=== PATIENT | female | born 1945 | race Caucasian/White ===

== ENCOUNTER → 2017-02-28 | Outpatient (CLI) | payer OTHER ==
[~2017-02-28] MED LIST: ACP20 PO; ASPCH81 PO; HYDC25 PO; MULT-506 PO; OXYC-57 PO
--- NOTE | 2017-02-28 13:53 | MAMMOGRAPHY REPORT ---
BILATERAL DIGITAL SCREENING MAMMOGRAM WITH CAD: 02/28/2017 CLINICAL HISTORY: Routine screening. TECHNIQUE: Current study was also evaluated with a Computer Aided Detection (CAD) system. Bilateral CC and MLO views were obtained. COMPARISON: Comparison is made to exams dated: 02/27/2016 mammogram, 02/22/2015 mammogram, 4 mammogram, 02/12/2013 mammogram, 01/24/2011 mammogram, and 02/12/2012 mammogram - [facility]. BREAST COMPOSITION: There are scattered areas of fibroglandular density in both breasts. FINDINGS: No suspicious masses, calcifications, or areas of architectural distortion are noted in ei ther breast. There has been no significant interval change compared to prior exams. Scattered bilater al benign-appearing calcifications are not significantly changed. IMPRESSION: ACR BI-RADS CATEGORY 2: BENIGN There is no mammographic evidence of malignancy. A 1 year screening mammogram is recommended. The pa tient will receive written notification of the results. Approximately 10% of breast cancers are not detected with mammography. A negative mammographic report should not delay biopsy if a clinically suggestive mass is present. Brittney Panchal M.D. ah/:02/28/2017 08:00:01 Continuity Reader: Kamini MARSHALL(Johanna)(M), [facility] letter sent: Normal 1/2 BI-RADS Code: ACR BI-RADS Category 2: Benign
== END | disposition home or self-care (01) ==
LOC: C.MAMM 07:31
PROVIDERS: ATTEND Family Medicine
DX: Z12.31 Encounter for screening mammogram for malignant neoplasm of breast (principal)

== ENCOUNTER 2019-02-23 06:12 | Inpatient (IN) ==
--- NOTE | 2019-01-26 16:30 | PAT Medication Instructions ---
Medication Instructions Date of Service January 26, 2019 Home Medications acetaminophen [Tylenol Arthritis Pain] 1,300 mg PO UD PRN 01/20/19 [History Confirmed 01/20/19] apple cider vinegar 1,200 mg PO BID 01/20/19 [History Confirmed 01/20/19] ascorbic acid (vitamin C) [Vitamin C] 1 g PO DAILY 01/20/19 [History Confirmed 01/20/19] aspirin [Aspir-81] 81 mg PO DAILY 01/20/19 [History Confirmed 01/20/19] calcium carbonate [Calcium 600] 600 mg PO BID 01/20/19 [History Confirmed 01/20/19] diphenhydramine HCl 25 mg PO QAM 01/20/19 [History Confirmed 01/20/19] lisinopril 10 mg PO QAM 01/20/19 [History Confirmed 01/20/19] omega 4-ibe-qhc-fish oil [[place]-3] 1 cap PO QAM 01/20/19 [History Confirmed 01/20/19] pantoprazole 40 mg PO QAM 01/20/19 [History Confirmed 01/20/19] simvastatin 20 mg PO PM 01/20/19 [History Confirmed 01/20/19] STOP taking 2 weeks before surgery (or as soon as possible if surgery is within 2 weeks) apple cider vinegar 1,200 mg PO BID 01/20/19 [History Confirmed 01/20/19] omega 0-lmd-grn-fish oil [[place]-3] 1 cap PO QAM 01/20/19 [History Confirmed 01/20/19] DO NOT take the morning of surgery ascorbic acid (vitamin C) [Vitamin C] 1 g PO DAILY 01/20/19 [History Confirmed 01/20/19] calcium carbonate [Calcium 600] 600 mg PO BID 01/20/19 [History Confirmed 01/20/19] diphenhydramine HCl 25 mg PO QAM 01/20/19 [History Confirmed 01/20/19] lisinopril 10 mg PO QAM 01/20/19 [History Confirmed 01/20/19] Take morning of surgery With a small sip of water, OTHERWISE NOTHING TO EAT OR DRINK AFTER MIDNIGHT: acetaminophen [Tylenol Arthritis Pain] 1,300 mg PO UD PRN (okay to take up to 4 hours prior to surgery if needed) aspirin [Aspir-81] 81 mg PO DAILY pantoprazole 40 mg PO QAM Take evening before surgery acetaminophen [Tylenol Arthritis Pain] 1,300 mg PO UD PRN (if needed) calcium carbonate [Calcium 600] 600 mg PO BID simvastatin 20 mg PO PM Other Notes If you have any questions please call us at [phone] or [phone] or [phone] or [phone]
--- NOTE | 2019-01-27 10:47 | Anesthesiology Consultation ---
Date of Service January 27, 2019 Assessment & Plan (1) Encounter for pre-operative examination: - Awaiting review preop testing (labs, EKG, CXR). - Awaiting surgeon-ordered PCP preop evaluation scheduled 02/02 (Dr. Park). Chart Review Chart Review: Pending: Refer to Additional Notes / Consult section (pending preop testing (labs, EKG, CXR)) and Patient seen in Pre Admission Testing Teaching & Discussion Pre-Anesthesia Teaching/Discussion Notes: Instructed NPO after midnight before surgery,except medications with 15 cc of water. Medication instructions provided according to the PAT guidelines. History Surgery Operation Date: 02/23/19 07:15 Proposed Procedures p Right Anterior Total Hip Arthroplasty - Caio Marmolejo, Height/Weight Height: 5 ft 1.5 in Weight: 73.7 kg Allergies Allergy/AdvReac Type Severity Reaction Status Date / Time DUST Allergy Unknown RUNNY NOSE Uncoded 01/20/19 08:55 Medications Home Medications Medication Instructions Recorded Confirmed Last Taken acetaminophen [Tylenol Arthritis 1,300 mg PO UD PRN 01/20/19 01/20/19 Unknown Pain] apple cider vinegar 1,200 mg PO BID 01/20/19 01/20/19 Unknown ascorbic acid (vitamin C) [Vitamin 1 g PO DAILY 01/20/19 01/20/19 Unknown C] aspirin [Aspir-81] 81 mg PO DAILY 01/20/19 01/20/19 Unknown calcium carbonate [Calcium 600] 600 mg PO BID 01/20/19 01/20/19 Unknown diphenhydramine HCl 25 mg PO QAM 01/20/19 01/20/19 Unknown lisinopril 10 mg PO QAM 01/20/19 01/20/19 Unknown omega 3-lkh-det-fish oil [[place]-3] 1 cap PO QAM 01/20/19 01/20/19 Unknown pantoprazole 40 mg PO QAM 01/20/19 01/20/19 Unknown simvastatin 20 mg PO PM 01/20/19 01/20/19 Unknown Past Medical History Medical History Acid reflux controlled Borderline high cholesterol High blood pressure Obesity Exercise / Class Metabolic Activity II 4-5 Yardwork/Stairs/Walk up hill (one flight of stairs (no chest pain/no sob) uses cane PRN) Past Family History Family History Sister Family history of diabetes mellitus Mother Family history of diabetes mellitus Aunt Family history of diabetes mellitus Past Surgical History Surgical History History of cholecystectomy History of colonoscopy History of foot surgery L BIG TOE Past Anesthesia History No Family Hx of Anesthesia Complications and Other *"slow to wake" x 1 episode with previous colonoscopy/no similar issues with other surgeries/anesthesia* History of PONV No Hx of PONV and No Hx of Motion Sickness Social History Smoking Status: Never smoker Do You Dip or Chew Tobacco: No Hx Alcohol Use: Yes Alcohol type: wine alcohol intake frequency: holidays/special occasions only Hx Substance Use: No substance use type: does not use Review of Systems Occasional cough (non-productive). Reflux controlled. Patient denies chest pain, shortness of breath, dyspnea on exertion, wheezing, palpitations. Physical Exam Vital Signs VITALS BP 109/73 P 71 TEMP 97.7 SP02 94%RA RESP 20 PHYSICAL Full neck and c-spine range of motion. Full TMJ range of motion. TMD 3.5 finger breaths Mallampati Score 3 (small oral opening) Dentition: intact Lungs: clear throughout to auscultation Cardiac: regular rate and rhythm, no murmurs noted Spine: normal Carotid arteries: negative bruit Extremities: no edema
--- NOTE | 2019-01-27 11:46 | XRay Report ---
XR chest Pre-admission PA/Lat HISTORY: 73 years-old Female pat preoperative exam. No acute chest complaints COMPARISON: Chest radiograph 07/18/2006, CT abdomen and pelvis 07/16/2006. TECHNIQUE: PA and lateral views of the chest FINDINGS: Cardiomediastinal and hilar silhouettes are within normal limits. Moderate sized hiatal hernia. Mild eventration of the right hemidiaphragm. No pneumothorax, pleural effusion, focal airspace consolidati on or overt pulmonary edema. Mild convex right curvature of the lower thoracic spine. Degenerative ch anges of the shoulders and spine. Cholecystectomy. IMPRESSION: 1. No acute process. 2. Moderate sized hiatal hernia. The above report was generated using voice recognition software. It may contain grammatical, syntax o r spelling errors. Electronically signed by: Juan Ramon Burden M.D. 01/27/2019 11:45 AM
[2019-01-27 13:08] LABS: Basophils # (auto) 0.01 K/uL (0-0.2); Basophils % (auto) 0.1 %; Eosinophils # (auto) 0.16 K/uL (0-0.5); Eosinophils % (auto) 2.3 %; Hematocrit (blood only) 39.4 % (37-47); Hemoglobin 13.2 g/dL (12.0-16.0); Immature Granulocytes # (auto) 0.02 K/uL (0.00-0.02); Immature Granulocytes % (auto) 0.3 %; Lymphocytes # (auto) 1.81 K/uL (1.2-3.4); Lymphocytes % (auto) 26.5 %; Mean Corpuscular Hemoglobin 29.2 pg (25-34); Mean Corpuscular Hgb Conc 33.5 g/dL (32-36); Mean Corpuscular Volume 87.2 fL (80-100); Monocytes # (auto) 0.64 K/uL (0.11-0.59); Monocytes % (auto) 9.4 %; Neutrophils # (auto) 4.19 K/uL (1.4-6.5); Neutrophils % (auto) 61.4 %; Platelet Count 267 K/uL (130-400); RDW Coefficient of Variation 13.1 % (11.5-14.5); Red Blood Count 4.52 M/uL (4.2-5.4); White Blood Count 6.83 K/uL (4.8-10.8)
[2019-01-27 13:12] LABS: Appearance Urine Cloudy (Clear); Bacteria Urine Automated 4+ (Negative); Bilirubin Urine Negative (Negative); Blood Urine Negative (Negative); Color Urine Yellow; Epithelial Cell Urine Auto >30 /lpf (0-5); Glucose Urine UA Negative (Negative); Ketones Urine Negative (Negative); Leukocyte Esterase Urine 2+ (Negative); Nitrite Urine Positive (Negative); Protein Urine Negative (Negative); Specific Gravity Urine 1.023 (1.000-1.030); Urobilinogen Urine Negative (Negative); WBC Urine Automated >30 /hpf (0-5)
[2019-01-27 13:19] LABS: Partial Thromboplastin Time 26.5 Seconds (21.0-31.0); Prothrombin Time 10.4 Seconds (9.0-12.0)
[2019-01-27 13:21] LABS: Estimated Average Glucose 120 mg/dl; Hemoglobin A1C 5.8 % (4.5-5.6)
[2019-01-27 14:56] LABS: BUN Creatinine Ratio 21.6 (10-20); Calcium 10.3 mg/dl (8.5-10.1); Creatinine Clr Calc Pharmacy 32.8 ml/min; Est GFR (African American) 42.8; Est GFR (Non-African American) 36.9; Potassium 4.6 mmol/L (3.5-5.1)
--- NOTE | 2019-02-22 13:08 | History & Physical Report ---
Date of Service February 22, 2019 Assessment & Plan (1) Degenerative joint disease (DJD) of hip: I have indicated the patient for right anterior total hip replacement. The risks, benefits and complications of surgery were explained to the patient which include but not limited to infection, acute blood loss, DVT/PE, injury to nerves, vessels, bone, soft tissue, arthrofibrosis, chronic pain, failure of the prosthesis, hip dislocation, leg length discrepancy, need for additional surgery, cardiac and pulmonary events and . The patient wished to proceed with surgery and informed consent was obtained at this time. We will plan for 81mg ASA BID post-operatively for DVT prophylaxis. Upon discharge the patient will be discharged home with home health services. Appropriate clearances by PCP were obtained. The patient had + UTI in PAT. Given 3 day course of DS bactrim. Currently asymptomatic for UTI. History of Present Illness Chief Complaint: Right hip pain/djd Primary Care Provider: Jake Park MD The patient is a 73 year old female who presents with complaints of severe right hip pain and DJD. The patient has failed outpatient conservative treatments to this point which included NSAIDs, IA corticosteroid injection, home exercise/walking program. The patient's pain and limited function have progressed to the point where they severely hinder their activities of daily living and they no longer tolerate exercise programs. They are requesting to proceed with total hip replacement surgery. Allergies Allergy/AdvReac Type Severity Reaction Status Date / Time DUST Allergy Unknown RUNNY NOSE Uncoded 02/23/19 06:41 Home Medications Home Medications Medication Instructions Recorded Confirmed Type acetaminophen [Tylenol Arthritis 1,300 mg PO UD PRN 01/20/19 02/23/19 History Pain] apple cider vinegar 1,200 mg PO BID 01/20/19 02/23/19 History ascorbic acid (vitamin C) [Vitamin 1 g PO DAILY 01/20/19 02/23/19 History C] aspirin [Aspir-81] 81 mg PO DAILY 01/20/19 02/23/19 History calcium carbonate [Calcium 600] 600 mg PO BID 01/20/19 02/23/19 History diphenhydramine HCl 25 mg PO QAM 01/20/19 02/23/19 History lisinopril 10 mg PO QAM 01/20/19 02/23/19 History omega 9-vgy-mwm-fish oil [[place]-3] 1 cap PO QAM 01/20/19 02/23/19 History pantoprazole 40 mg PO QAM 01/20/19 02/23/19 History simvastatin 20 mg PO PM 01/20/19 02/23/19 History Past Med/Surg History Medical History Acid reflux controlled Borderline high cholesterol High blood pressure Obesity Surgical History History of cholecystectomy History of colonoscopy History of foot surgery L BIG TOE Family History Sister Family history of diabetes mellitus Mother Family history of diabetes mellitus Aunt Family history of diabetes mellitus Social History Preferred Language: Mohawk Communication Ability: Effective Sheet Metal Welder Required: No Beliefs That Will Affect Care: None Current Living Situation: Spouse Other Information That Helps Us Care for You: No Feels Safe at Home: Yes Smoking Status: Never smoker Do You Dip or Chew Tobacco: No ; Hx Alcohol Use: Yes Alcohol type: wine Hx Substance Use: No Review of Systems Review of Systems: All systems reviewed & are unremarkable except as noted in HPI & below Constitutional: as per Subjective / HPI Physical Exam Physical Exam: RLE NVSI +EHL/FHL/TA/GS SILT grossly, +2 DP pulse, compartments soft NT, limited painful ROM of the hip, antalgic gait. Constitutional: WD/WN, vitals as above Eyes: PERRL, conjunctivae normal, anicteric sclerae ENMT: external ear and nose normal, oropharynx normal Neck: trachea midline, no thyromegaly Respiratory: normal respiratory effort, lungs clear to auscultation Cardiovascular: RRR, no murmur, no edema Gastrointestinal (Abdomen): normal bowel sounds, soft, nontender, no hepatosplenomegaly Musculoskeletal: no cyanosis or clubbing, extremities motor strength 5/5 Skin: no rashes, warm and dry Neurologic: patellar DTR's 2+ bilat, sensation intact Psychiatric: A+Ox3, euthymic affect Lymphatic: no cervical or axillary lymphadenopathy Results & Data Diagnostic Findings Multiple views of the hip demonstrates severe DJD with complete loss of the joint space. +osteophytes, +sclerosis, +subchondral cysts.
[~2019-02-23 06:12] MED LIST changes: +ACETAMINOPHEN 500 MG TAB PO SCH; -ACP20 PO; -ASPCH81 PO; +CEFAZOLIN 1000MG 1,000 MG/7.5 ML SYR IV SCH; +CeleBREX 200 MG CAP PO SCH; +FAMOTIDINE 20 MG TAB PO SCH; +GABAPENTIN 300 MG CAP PO SCH; -HYDC25 PO; +LR 500ML BOLUS, THEN 15ML/HR IV SCH; +METOCLOPRAMIDE HCL 10 MG TABLET PO SCH; -MULT-506 PO; -OXYC-57 PO; +ROPIVACAINE 0.5% HCL/PF 150 MG, BUPIVACAINE 0.5% MPF 30 ML, EPINEPHrine 30MG/30ML (OR U... INSTIL SCH; +TRANEXAMIC ACID 1,000 MG **IV Pre-op IV SCH; +dexAMETHasone 4 MG TAB PO SCH
[2019-02-23] MEDS ORDERED: TRANEXAMIC ACID 1,000 MG **IV Intra-op IV SCH (06:30)
[2019-02-23] MEDS ORDERED: BUPIVACAINE 0.5 % 5 MG/1 ML PF 10ML VIAL ONE (06:34)
[2019-02-23] MEDS ORDERED: PROPOFOL IV EMULSION 10 MG/ML 20 ML VIAL IV ONE (07:02)
[2019-02-23] MEDS ORDERED: DEXAMETHASONE SOD INJ 4 MG/ML VIAL ONE (07:02)
[2019-02-23] MEDS ORDERED: LIDOCAINE HCL 2% 2 ML VIAL/AMP(20MG/ML) INFIL ONE (07:02)
[2019-02-23] MEDS ORDERED: ONDANSETRON INJ 2 MG/ML 2 ML VIAL ONE (07:02)
[2019-02-23] MEDS ORDERED: MIDAZOLAM HCL 1 MG/ML 2ML VIAL ONE (07:03)
[2019-02-23] MEDS ORDERED: fentaNYL citrate 100 MCG/2 ML VIAL ONE (07:03)
--- NOTE | 2019-02-23 07:05 | History & Physical Bridge Note ---
Date of Service February 23, 2019 History & Physical Bridge Note I have examined the patient, reviewed the History & Physical and in the interval since the performance of the History & Physical I have noted the following changes of clinical significance: no changes noted
[2019-02-23] MEDS ORDERED: ORTHO JOINT ANESTHETIC ONE (07:46)
[2019-02-23] MEDS ORDERED: BACITRACIN INJ 50,000 UNIT VIAL ONE (07:46)
[2019-02-23] MEDS ORDERED: fentaNYL citrate 100 MCG/2 ML VIAL IV PRN (07:49)
[2019-02-23] MEDS ORDERED: HYDROmorphone INJ 2 MG/ML SYR/VIAL IV PRN (07:49)
[2019-02-23] MEDS ORDERED: ONDANSETRON INJ 2 MG/ML 2 ML VIAL IV PRN ×2 (07:49→12:40)
[2019-02-23] MEDS ORDERED: ATROPINE SULFATE 0.1 MG/ML 10ML SYR IV PRN (07:49)
[2019-02-23] MEDS ORDERED: ePHEDrine sulfate 50 MG/ML AMP IV PRN (07:49)
--- NOTE | 2019-02-23 10:54 | Post Operative Brief Note ---
Immediate Post Op Note v1 Date of Surgery February 23, 2019 Pre & Post Diagnosis Operation Date: 02/23/19 08:55 Pre-Op Diagnosis: Unilateral Primary Osteoarthritis, Right Hip Post-Op Diagnosis: Unilateral Primary Osteoarthritis, Right Hip I identified the patient and participated in the time-out.: Yes Procedure Operation Date: 02/23/19 08:55 Actual Procedures p Right Anterior Total Hip Arthroplasty(Right) - Caio Marmolejo DO Surgeon Caio Marmolejo DO Casino Manager Chino García Estimated Blood Loss 225 Findings Consistent with Post-Op Diagnosis Fluids 1200 cc LR Specimens femoral head Anesthesia Type Spinal Complications none Disposition Disposition: Recovery Room Overlapping Procedure I was present for: the critical portions of procedure. I was immediately available: during the entire case. Back up surgeon: was not required during procedure.
--- NOTE | 2019-02-23 11:07 | Fluoroscopy Report ---
FL hip RT 1V CLINICAL HISTORY: RT ANTERIOR HIP REPLACEMENThip replacement COMPARISON STUDY: None FLUOROSCOPY TIME: 44 seconds NUMBER OF FLUOROSCOPIC IMAGES: 2 FINDINGS: Image intensifier support was provided for a total right hip arthroplasty. Alignment appear s anatomic. IMPRESSION: Image intensifier support for a total right hip arthroplasty. The above report was generated using voice recognition software. It may contain grammatical, syntax or spelling errors. Electronically signed by: Christo Murphy M.D. 02/23/2019 11:06 AM
--- NOTE | 2019-02-23 11:11 | Operative Report ---
Post Operative Report Pre & Post Diagnosis Operation Date: 02/23/19 08:55 Pre-Op Diagnosis: Unilateral Primary Osteoarthritis, Right Hip Post-Op Diagnosis: Unilateral Primary Osteoarthritis, Right Hip I identified the patient and participated in the time-out.: Yes Procedure Operation Date: 02/23/19 08:55 Actual Procedures p Right Anterior Total Hip Arthroplasty(Right) - Caio Marmolejo DO Surgeon Caio Marmolejo DO Carport Erector Chino García Estimated Blood Loss 225 Findings Consistent with Post-Op Diagnosis Fluids 1200 cc LR Specimens Femoral head Anesthesia Type Spinal MAC Complications none Disposition Disposition: Recovery Room Indications The patient is a 73-year-old female who presents with severe progressive right hip DJD who has failed outpatient conservative treatments. I indicated the patient for a total hip replacement and the risks and benefits were explained in detail which included but not limited to infection, bleeding, blood clot, damage to surrounding bone, nerves, vessels, soft tissue, hip dislocation, failure of the prosthesis, leg length discrepancy, need for additional surgery and . The patient agreed to proceed with replacement of the hip and informed consent was obtained. Appropriate clearances were obtained. Description of Procedure COMPONENTS USED: [employer]ica & NephMonogramology hip system: Acetabulum size 50, femur size 3 standard offset, femoral head 32+0, liner 50x32, acetabular screw 25mm x1. DESCRIPTION OF PROCEDURE: Following satisfactory spinal anesthesia, the patient was placed supine on the OR table. The left leg was placed in the well leg shah and the right leg in the traction device. The right leg was prepared with ChloraPrep and draped sterilely. A surgical timeout was performed, patient identified and site vladimir verified. Appropriate antibiotics were given. A standard anterior approach in the interval between the sartorius and tensor muscles was performed. Dissection was carried down through subcutaneous tissues. Electrocautery was utilized for hemostasis. Circumflex femoral vessels were identified, tied and ligated. The anterior capsular fat pad was removed and the capsulotomy was performed revealing the arthritic femoral neck and head. A femoral neck cut was made with reciprocating saw and the bone fragments removed. The acetabular self-retraining retractor was placed. Acetabular reaming was completed under fluoroscopic guidance, a 50 shell was impacted into an anatomic position and secured with a dome screw. Local anes thetic was placed and following irrigation, the polyethylene liner was placed. The femur was placed into position of external rotation, extension and adduction. Femoral canal was prepared up to the size 3 standard offset. Trial reduction with a +0 neck length head showed good soft tissue tension, leg lengths restored, and good fit and fill of the proximal canal using fluoroscopic landmarks. The hip was dislocated. The trial component was removed. The final implant was placed. The hip was irrigated with sterile saline solution and reduced. A Betadine soak was performed. After 3 minutes, the hip was once more irrigated with copious sterile saline solution with bacitracin. Aida-incisional soft tissue was injected utilizing [place] [employer]ix which includes a combination of Ropivicaine 0.5% 150mg, Bupivicaine 0.5%/Epinephrine 1:200,000 30ml, Toradol 30mg, Dexamethasone 4mg, Ketamine 10mg, Clonidine 100mcg and NSS 30ml solution. The capsule was then closed with 1-0 Vicryl interrupted figure of eight sutures. The fascia was closed with a running suture of #1 Vicryl, the subcutaneous tissues with 2-0 Vicryl and the skin with wanda. A sterile dressing was applied which included Maria L incisional VAC. The patient tolerated the procedure well and was transported to PACU in stable condition. Due to the complex nature of the procedure, the entire surgery was performed with the operational assistance of Chino García PA-C. The conventions assistant, under direct supervision, was involved in the actual performance of all aspects of the surgical procedure including patient positioning, hemostasis, tissue retraction, instrument management and wound closure. I attest to the content of the Intraoperative Record and any orders documented therein. Any exceptions are noted below.
--- NOTE | 2019-02-23 11:29 | Anesthesiology Progress Note ---
Date of Service February 23, 2019 Anesthesia Post Procedure Vital Signs Vital Signs: Temp Pulse Resp BP Pulse Ox 02/23/19 06:45 36.4 C L 77 20 146/82 H 96 Transfer of Care Handoff Completed per policy Notes Mental Status: alert / awake / arousable and participated in evaluation Patient Amnestic to Procedure: Yes Nausea / Vomiting: adequately controlled Pain: adequately controlled Airway Patency, RR, SpO2: stable & adequate BP & HR: stable & adequate Hydration State: stable & adequate Anesthetic Complications: no major complications apparent and Pt Satisfied with anesthetic care
--- NOTE | 2019-02-23 12:08 | XRay Report ---
XR hip 1V RT w pelvis CLINICAL HISTORY: IN PACU - A/P PELVIS and LATERAL HIP COMPARISON: None. DISCUSSION: Anatomic alignment posttotal right hip arthroplasty. Good contact between prosthetic and underlying bone. No evidence for acetabular protrusion. Expected postoperative soft tissue change IMPRESSION: Anatomic alignment posttotal right hip arthroplasty. The above report was generated using voice recognition software. It may contain grammatical, syntax or spelling errors. Electronically signed by: Christo Murphy M.D. 02/23/2019 12:07 PM
[2019-02-23] MEDS ORDERED: MAGNESIUM HYDROXIDE SUSP 30 ML UDC PO PRN (12:40)
[2019-02-23] MEDS ORDERED: NALOXONE HCL 0.4 MG/1 ML VIAL/CARP IV PRN (12:40)
[2019-02-23] MEDS ORDERED: METOCLOPRAMIDE HCL INJ 5 MG/ML 2 ML VIAL IV PRN (12:40)
[2019-02-23] MEDS ORDERED: HYDROmorphone INJ 0.5 MG/0.5 ML SYR IV PRN (12:40)
[2019-02-23] MEDS ORDERED: OXYCODONE HCL IR 5 MG TAB (IMMEDIATE RELEASE) PO PRN (12:40)
[2019-02-23] MEDS ORDERED: BISACODYL 10 MG SUPP PR PRN (12:40)
[2019-02-23] MEDS: KETOROLAC TROMETHAMINE 15 MG/ML VIAL IV SCH ×3 (16:51→23:58)
[2019-02-23] MEDS: ACETAMINOPHEN 500 MG TAB PO SCH ×2 (16:52→22:05)
[2019-02-23] MEDS: SODIUM CHLORIDE 0.9% 1000ML 1,000 ML IV SCH (16:53)
--- NOTE | 2019-02-23 18:08 | Orthopedic Progress Note ---
Date of Service February 23, 2019 Assessment & Plan (1) Degenerative joint disease (DJD) of hip: s/p R anterior FINN -ancef x 24 -DVT ppx: SCDs, TEDs, 81mg ASA BID -WBAT RLE -PT/OT -PO XR demonstrates a well aligned well fixed prothesis without fracture dislocation -am labs -DC planning Subjective Post Operative Progress Note Patient seen sitting up in bed, comfortable, denies complaints, pain well controlled, no acute issues. Review of Systems Review of Systems: All systems reviewed & are unremarkable except as noted in HPI & below Constitutional: as per Subjective / HPI Physical Exam Physical Exam: RLE NVSI +EHL/FHL/TA/GS SILT grossly, +2 DP pulse, compartments soft NT, dressing cdi. Constitutional: WD/WN, vitals as above Results & Data Vital Signs (Past 12 Hours) Vital Signs Temp Pulse Pulse Pulse Pulse Resp BP 02/23/19 16:20 87 15 02/23/19 15:21 36.3 C L 82 16 02/23/19 14:39 36.6 C 78 16 02/23/19 13:41 79 17 02/23/19 12:53 76 16 02/23/19 12:30 36.5 C 73 18 02/23/19 12:05 71 15 126/78 02/23/19 12:00 72 16 121/71 02/23/19 11:55 75 18 126/73 02/23/19 11:51 36.3 C L 02/23/19 11:50 68 21 128/71 02/23/19 11:46 76 16 113/74 02/23/19 11:45 79 21 02/23/19 11:40 74 16 111/75 02/23/19 11:35 73 15 121/71 02/23/19 11:30 74 14 119/68 02/23/19 11:25 76 16 109/71 02/23/19 11:20 69 14 116/74 02/23/19 11:18 36.9 C 73 80 16 116/67 02/23/19 06:45 36.4 C L 77 20 BP Pulse Ox 02/23/19 16:20 129/76 97 02/23/19 15:21 121/72 98 02/23/19 14:39 120/77 100 02/23/19 13:41 123/74 97 11/26/19 12:53 117/76 97 02/23/19 12:30 113/70 99 02/23/19 12:05 99 02/23/19 12:00 99 02/23/19 11:55 96 02/23/19 11:51 02/23/19 11:50 99 02/23/19 11:46 96 02/23/19 11:45 96 02/23/19 11:40 99 02/23/19 11:35 99 02/23/19 11:30 99 02/23/19 11:25 96 02/23/19 11:20 99 02/23/19 11:18 116/67 98 02/23/19 06:45 146/82 H 96
[2019-02-23] MEDS: CEFAZOLIN 2000MG 2,000 MG/15 ML SYR IV SCH (18:38)
[2019-02-23] MEDS: DOCUSATE SODIUM 100 MG CAP PO SCH (20:42)
[2019-02-23] MEDS: CALCIUM CARBONATE 500 MG CHEWABLE TAB PO SCH (20:42)
[2019-02-23] MEDS ORDERED: SIMVASTATIN 20 MG TAB PO SCH (21:00)
[2019-02-23] MEDS ORDERED: SENNA 8.6 MG TAB PO SCH (21:00)
[2019-02-24] MEDS: SODIUM CHLORIDE 0.9% 1000ML 1,000 ML IV SCH (01:48)
[2019-02-24] MEDS: CEFAZOLIN 2000MG 2,000 MG/15 ML SYR IV SCH (01:48)
[2019-02-24] MEDS: ACETAMINOPHEN 500 MG TAB PO SCH ×2 (05:20→13:26)
[2019-02-24 05:52] LABS: Immature Granulocytes # (auto) 0.01 K/uL (0.00-0.02); Immature Granulocytes % (auto) 0.1 %; Lymphocytes # (auto) 0.81 K/uL (1.2-3.4); Lymphocytes % (auto) 7.7 %; Mean Corpuscular Hemoglobin 29.2 pg (25-34); Mean Corpuscular Hgb Conc 33.3 g/dL (32-36); Mean Corpuscular Volume 87.5 fL (80-100); Mean Platelet Volume 8.9 fL (7.4-10.4); Monocytes # (auto) 0.73 K/uL (0.11-0.59); Monocytes % (auto) 6.9 %; Neutrophils # (auto) 8.99 K/uL (1.4-6.5); Neutrophils % (auto) 85.3 %; Platelet Count 182 K/uL (130-400); RDW Coefficient of Variation 13.2 % (11.5-14.5); RDW Standard Deviation 42.5 fL (36.4-46.3); Red Blood Count 3.43 M/uL (4.2-5.4); White Blood Count 10.54 K/uL (4.8-10.8)
[2019-02-24] MEDS: KETOROLAC TROMETHAMINE 15 MG/ML VIAL IV SCH (06:15)
[2019-02-24 06:17] LABS: BUN Creatinine Ratio 25.8 (10-20); Calcium 8.3 mg/dl (8.5-10.1); Creatinine Clr Calc Pharmacy 28.3 ml/min; Est GFR (African American) 36.1; Est GFR (Non-African American) 31.2; Potassium 4.5 mmol/L (3.5-5.1)
--- NOTE | 2019-02-24 07:55 | Anesthesiology Progress Note ---
Date of Service February 24, 2019 Anesthesia Post Procedure Vital Signs Vital Signs: Temp Pulse Pulse Pulse Resp BP BP 02/24/19 07:20 36.3 C L 61 16 113/67 02/24/19 01:58 36.5 C 63 16 120/72 02/23/19 23:00 36.4 C L 70 16 113/64 02/23/19 16:20 87 15 129/76 02/23/19 15:21 36.3 C L 82 16 121/72 02/23/19 14:39 36.6 C 78 16 120/77 02/23/19 13:41 79 17 123/74 02/23/19 12:53 76 16 117/76 02/23/19 12:30 36.5 C 73 18 113/70 02/23/19 12:05 71 15 126/78 02/23/19 12:00 72 16 121/71 02/23/19 11:55 75 18 126/73 02/23/19 11:51 36.3 C L 02/23/19 11:50 68 21 128/71 02/23/19 11:46 76 16 113/74 02/23/19 11:45 79 21 02/23/19 11:40 74 16 111/75 02/23/19 11:35 73 15 121/71 02/23/19 11:30 74 14 119/68 02/23/19 11:25 76 16 109/71 02/23/19 11:20 69 14 116/74 02/23/19 11:18 36.9 C 73 80 16 116/67 116/67 Pulse Ox 02/24/19 07:20 96 02/24/19 01:58 97 02/23/19 23:00 99 02/23/19 16:20 97 02/23/19 15:21 98 02/23/19 14:39 100 02/23/19 13:41 97 02/23/19 12:53 97 02/23/19 12:30 99 02/23/19 12:05 99 02/23/19 12:00 99 02/23/19 11:55 96 02/23/19 11:51 02/23/19 11:50 99 02/23/19 11:46 96 02/23/19 11:45 96 02/23/19 11:40 99 02/23/19 11:35 99 02/23/19 11:30 99 02/23/19 11:25 96 02/23/19 11:20 99 02/23/19 11:18 98 Pain Intensity Right Hip: Pain Intensity: 0 Notes Mental Status: alert / awake / arousable and participated in evaluation Patient Amnestic to Procedure: Yes Nausea / Vomiting: adequately controlled Pain: adequately controlled Airway Patency, RR, SpO2: stable & adequate BP & HR: stable & adequate Hydration State: stable & adequate Neuraxial Anesthesia: was administered and sensory block resolved Anesthetic Complications: no major complications apparent and Pt Satisfied with anesthetic care
[2019-02-24] MEDS ORDERED: ASPIRIN 81 MG ECTAB PO SCH (09:00)
[2019-02-24] MEDS ORDERED: LISINOPRIL 10 MG TAB PO SCH (09:00)
[2019-02-24] MEDS ORDERED: PANTOprazole 40 MG TAB PO SCH (09:00)
[2019-02-24] MEDS ORDERED: MULTIVITAMIN TAB PO SCH (09:00)
[2019-02-24] MEDS: DOCUSATE SODIUM 100 MG CAP PO SCH (09:03)
[2019-02-24] MEDS: CALCIUM CARBONATE 500 MG CHEWABLE TAB PO SCH (09:04)
[2019-02-24 11:51] VITALS: BP 101/64; PULSE 63; TEMP 97.5; O2SAT 98
--- NOTE | 2019-02-24 13:15 | Orthopedic Progress Note ---
Date of Service February 24, 2019 Assessment & Plan (1) Degenerative joint disease (DJD) of hip: s/p R anterior FINN POD#1 -ancef x 24 -DVT ppx: SCDs, TEDs, 81mg ASA BID -WBAT RLE -PT/OT -PO XR demonstrates a well aligned well fixed prothesis without fracture dislocation -am labs: Hgb 10.0, Cr 1.61, baseline 1.4 -Will provide ambulatory order for repeat BMP upon discharge, will have patient follow up with PCP within 1 week of discharge -DC planning: Home with HH Subjective Post Operative Progress Note Patient seen sitting up in bed, comfortable, denies complaints, pain well controlled, no acute issues. Denies N/V/F/C/SOP/CP. Review of Systems Review of Systems: All systems reviewed & are unremarkable except as noted in HPI & below Constitutional: as per Subjective / HPI Physical Exam Physical Exam: RLE NVSI +EHL/FHL/TA/GS SILT grossly, +2 DP pulse, compartments soft NT, dressing cdi. Constitutional: WD/WN, vitals as above Results & Data Vital Signs (Past 12 Hours) Vital Signs Temp Pulse Pulse Resp BP Pulse Ox 02/24/19 11:33 36.4 C L 63 16 101/64 98 02/24/19 09:02 71 99/61 L 02/24/19 07:20 36.3 C L 61 16 113/67 96 02/24/19 01:58 36.5 C 63 16 120/72 97 Laboratory Results 02/24/19 02/24/19 02/24/19 Range/Units 05:40 05:40 05:40 WBC 10.54 (4.8-10.8) K/uL RBC 3.43 L (4.2-5.4) M/uL Hgb 10.0 L (12.0-16.0) g/dL Hct 30.0 L (37-47) % MCV 87.5 (80-100) fL MCH 29.2 (25-34) pg MCHC 33.3 (32-36) g/dL RDW Std Deviation 42.5 (36.4-46.3) fL RDW Coeff of Scar 13.2 (11.5-14.5) % Plt Count 182 (130-400) K/uL MPV 8.9 (7.4-10.4) fL Immature Gran % (Auto) 0.1 % Neut % (Auto) 85.3 % Lymph % (Auto) 7.7 % [place] % (Auto) 6.9 % Eos % (Auto) 0.0 % Baso % (Auto) 0.0 % Immature Gran # (Auto) 0.01 (0.00-0.02) K/uL Neut # (Auto) 8.99 H (1.4-6.5) K/uL Lymph # (Auto) 0.81 L (1.2-3.4) K/uL [place] # (Auto) 0.73 H (0.11-0.59) K/uL Eos # (Auto) 0.00 (0-0.5) K/uL Baso # (Auto) 0.00 (0-0.2) K/uL Sodium 138 (136-145) mmol/L Potassium 4.5 (3.5-5.1) mmol/L Chloride 109 H (98-107) mmol/L Carbon Dioxide 22 (21-32) mmol/L Anion Gap 7.0 (3-11) BUN 42 H (7-18) mg/dl Creatinine 1.61 H (0.6-1.2) mg/dl Est Cr Clr Drug Dosing 28.3 ml/min Est GFR ( Amer) 36.1 Est GFR (Non-Af Amer) 31.2 BUN/Creatinine Ratio 25.8 H (10-20) Glucose 134 H (70-99) mg/dl Calcium 8.3 L (8.5-10.1) mg/dl Hepatitis C Ab Screen Neg (Neg)
[2019-02-24] MEDS ORDERED: CeleBREX 200 MG CAP PO SCH (21:00)
--- NOTE | 2019-03-01 22:40 | Discharge Summary ---
Date of Service March 01, 2019 Admission HPI Per Admitting Provider The patient is a 73 year old female who presents with complaints of severe right hip pain and DJD. The patient has failed outpatient conservative treatments to this point which included NSAIDs, IA corticosteroid injection, home exercise/walking program. The patient's pain and limited function have progressed to the point where they severely hinder their activities of daily living and they no longer tolerate exercise programs. They are requesting to proceed with total hip replacement surgery. Principal Diagnosis Right anterior total hip replacement Discharge Exam RLE NVSI +EHL/FHL/TA/GS SILT grossly, +2 DP pulse, compartments soft NT, dressing cdi. Constitutional WD/WN, vitals as above Discharge Data Allergies Allergy/AdvReac Type Severity Reaction Status Date / Time mold Allergy Mild DUST -- Verified 02/23/19 09:58 runny nose Consultations 02/24/19 08:00 Consult Case Management - Discharge Planning Routine Procedures Performed Operation Date: 02/23/19 08:55 Actual Procedures p Right Anterior Total Hip Arthroplasty(Right) - Caio Marmolejo DO Ordered Studies 02/23/19 08:55 FL fluoroscopy <1hr Routine FL hip RT 1V Routine Hospital Course (1) Degenerative joint disease (DJD) of hip: The patient is a 73 -year-old female who presents with long standing history of severe right hip DJD and failed outpatient conservative treatments. The patient's symptoms have progressed to the point where it has been difficult to perform even normal activities of daily living. I indicated the patient for a right anterior total hip arthroplasty, the risks, benefits and complications of the procedure include but not limited to infection, bleeding, damage to bone, nerves, vessels, surrounding soft tissue, may develop blood clots, loss of function, leg length discrepancy, dislocation, failure of the components, loosening of the components, the need for additional surgery and . The patient wished to proceed with surgery at this time and informed consent was obtained. Hospital Course: On 02/23/19 the patient was taken to the operating room, adequate anesthesia administered and underwent a right anterior total hip arthroplasty. The patient tolerated the procedure well and was taken to the PACU in stable condition. Post-operatively the patient was started on a DVT ppx medication and given appropriate IV antibiotics. Consults were placed to physical therapy, occupational therapy and case management. On POD#1, the patient did well overnight and their pain was well controlled. Labs were drawn and the Hgb was 10.0, Cr 1.61, baseline 1.4 -We provided ambulatory order for repeat BMP upon discharge, will have patient follow up with PCP within 1 week of discharge. The patient progressed well with PT. Dressings were changed at this time and the incision was clean, dry and intact. The patients hospital stay was relatively uneventful and they were deemed stable by the orthopedic team and consultants to be discharged home with HH on 02/24/19. Discharge Instructions: Upon discharge the patient may weight bear as tolerates through their operative extremity. They were instructed to keep the incision clean and dry at all times. The patient may shower but should not submerge the incision, avoid bathing, pools and hot tubes. The patient was given a script for pain medication and should take as instructed. The patient was given a script for DVT ppx 81mg ASA BID and should take as directed. The patient was instructed to not drive or travel for long distances until cleared to do so. If the patient develops any symptoms of fevers, chills, nausea, vomiting, increased redness, swelling, pain or drainage from the surgical site, they should notify the office and/or proceed to the nearest emergency room. The patient should follow up in 10-14 days after surgery for their routine post-operative follow-up appointment and should call the office to confirm the date and time. s/p R anterior FINN POD#1 -ancef x 24 -DVT ppx: SCDs, TEDs, 81mg ASA BID -WBAT RLE -PT/OT -PO XR demonstrates a well aligned well fixed prothesis without fracture dis location -am labs: Hgb 10.0, Cr 1.61, baseline 1.4 -Will provide ambulatory order for repeat BMP upon discharge, will have patient follow up with PCP within 1 week of discharge -DC planning: Home with HH Total Time Total Time Spent Total Time Spent (In Minutes): 30 minutes Total Time Includes: Examination of the Patient, Discharge Planning, Medication Reconciliation and Communication With Other Providers Discharge Plan Discharge Items Patient Disposition: Home - Home Health Services Reason For Visit: Unilateral Primary Osteoarthritis, Right Hip Discharge Diagnosis: Right anterior total hip replacement Condition on Discharge: Good Activity: Per Instructions section Lifting: Wait until after follow-up appointment Bathing: Keep incision dry Bathing Comment: No bathing, pools or hot tubs. Sexual Activity: Wait until after follow-up appointment Exercise/Sports: Wait until after follow-up appointment Driving/Machine Use: No driving. Weightbearing: Right weightbearing Non-emergency contact: Primary Care Provider and Surgeon Call non-emergency contact if: you have any medication questions, your symptoms worsen, your pain is not controlled, your pain is worsening, your pain is unusual for you, your pain is concerning for you, you have a fever, your temperature is above 101, your wound has increased redness, your wound has inc reased drainage and your wound pain has increased Follow-up/Referrals: Jake Park MD [Primary Care Provider] - Diet: Regular Ambulatory Orders: Basic Metabolic Panel (Routine) Timeframe: 3 Days Location: Determined by Patient Ordered By: Caio Santos Attending Provider Instructions: ACTIVITY RECOMMENDATIONS: SELF CARE INSTRUCTIONS AFTER TOTAL HIP REPLACEMENT : Direct Anterior Approach Until the incision and soft tissues around your hip have healed, there is a possibility that the hip prosthesis could dislocate. A. Hip flexion ( Up & Down out of chair or steps ) may be difficult. This is normal. B. Numbness in front of the thigh is also normal for a few weeks. C. Use hand rails when walking on stairs. D. Wear low heeled shoes with non-slip soles. E. Be sure that your floors are free of things that could trip you - throw rugs, electrical cords, small objects. Avoid wet and waxed floors, especially with crutches and canes. F. Try to walk several times a day with rest periods between. G. Continue with all the exercises taught to you in the hospital. Again, make walking a part of your daily routine. SPECIAL CARE INSTRUCTIONS: VERY IMPORTANT TO READ AND REVIEW A. You may still be at risk for phlebitis and blood clots. 1. Wear surgical stockings (MILA hose) for 2 weeks after surgery to improve circulation and reduce swelling. 2. Take Aspirin 81mg twice daily for 4 weeks or as directed by your doctor. This is your blood thinner. 3. High risk patients may be prescribed a stronger blood thinner if necessary. 4. If you are on Coumadin normally, your family doctor/rooming house inspector should monitor your blood work. Expect a phone call the day of or the day after bloodwork is drawn to adjust your dosage. B. You must take antibiotics before having dental work, bladder, bowel and other surgery. Your doctor will provide you with a permanent card to carry describing precautions. C. Call [facility] if you have a fever, redness or swelling around the incision, cloudy drainage from incision, or sudden increase in pain in your hip, not relieved by your regular pain medication. D. Please call the office at if you have any concerns or questions about your operation or recovery. * YOU MAY SHOWER, NO TUB BATHS UNTIL CLEARED BY YOUR DOCTOR. - Keep an extra close eye on the top portion of your incision. Be sure to keep clean & dry. * WEAR MILA HOSE 20 HOURS PER DAY FOR 2 WEEKS. * YOU MAY PROGRESS FROM A WALKER, TO A CANE, TO INDEPENDENT AT YOUR OWN PACE. * MOST PATIENTS WILL HAVE HOME NURSING FOR THERAPY. IF YOU DECIDE TO DO OUTPATIENT PHYSICAL THERAPY, PLEASE SCHEDULE THIS 3 TIMES PER WEEK. *PREVENA incisional vac is a special dressing covering your incision. This dressing provides a sterile dry environment while you are healing. The dressing is to be left in place for 7 days post-operatively. Your home nurse or surgeon will remove. If you develop any redness or blisters or have any questions notify your surgeon immediately. FOLLOW UP VISIT: If appointment is not already scheduled: Please call [facility] to make a follow-up appointment for 2 weeks after your surgery at . Follow up with PCP within 1 week of discharge, ambulatory order provided for repeat BMP. Pending Studies at Discharge: No Stand-Alone Forms: My [facility], Smoking Cessation Medications and DC Order Prescriptions: New oxycodone 5 mg tablet 5 mg PO Q6H MDD 6 tabs PRN (Reason: pain) Qty: 30 RF: 0 aspirin 81 mg tablet,delayed release (DR/EC) 81 mg PO BID Qty: 56 RF: 0 celecoxib [Celebrex] 200 mg capsule 200 mg PO Q12H PRN (Reason: pain/inflammation) Qty: 28 RF: 0 Senna-Extra 17.2 mg tablet 17.2 mg PO HS PRN (Reason: constipation) Qty: 28 RF: 0 acetaminophen 500 mg tablet 1,000 mg PO Q8H PRN (Reason: fever or pain) Qty: 90 RF: 0 Continued ascorbic acid (vitamin C) [Vitamin C] 1,000 mg Tablet 1 g PO DAILY RF: 0 calcium carbonate [Calcium 600] 600 mg calcium (1,500 mg) Tablet 600 mg PO BID RF: 0 apple cider vinegar 600 mg Capsule 1,200 mg PO BID RF: 0 pantoprazole 40 mg Tablet,Delayed Release (Dr/Ec) 40 mg PO QAM RF: 0 simvastatin 20 mg Tablet 20 mg PO PM RF: 0 diphenhydramine HCl 25 mg Tablet 25 mg PO QAM RF: 0 lisinopril 10 mg Tablet 10 mg PO QAM RF: 0 [place]-3 350 mg-235 mg- 90 mg-597 mg Capsule,Delayed Release(Dr/Ec) 1 cap PO QAM RF: 0 Discontinued aspirin [Aspir-81] 81 mg Tablet,Delayed Release (Dr/Ec) 81 mg PO DAILY RF: 0 acetaminophen [Tylenol Arthritis Pain] 650 mg Tablet Extended Release 1,300 mg PO UD PRN (Reason: Pain) RF: 0 Discharge Orders: Discharge Order (Routine); Ordered 02/24/19 Ordered By: Caio Anderson/Other Patient Handouts: DVT Prevent Admission Data Admit Date/Time: 02/23/19 11:03 Attending Provider: Caio Marmolejo Admit Provider: Caio Marmolejo Primary Care Provider: Jake Park Other Interventions: Discharge Summary Assessment (RN) Last Done: 02/24/19 15:12 DC Date/Time DO NOT enter until pt leaves facility: 02/24/19 16:00
== END 2019-02-24 16:00 | disposition home health service (06) | DRG 470 ==
LOC: ASU 06:12 → 3E 11:03

== ENCOUNTER 2020-02-07 06:58 | Observation (INO) ==
--- NOTE | 2020-01-06 08:53 | PAT Medication Instructions ---
Medication Instructions Date of Service January 06, 2020 Home Medications Medication Instructions Recorded acetaminophen 1,000 mg PO Q8H PRN #90 tab 02/23/19 [place]-3 1 cap PO QAM apple cider vinegar 600 mg PO BID ascorbic acid (vitamin C) [Vitamin C] 1 g PO QAM diphenhydramine HCl 25 mg PO QAM lisinopril 10 mg PO QAM pantoprazole 40 mg PO QAM simvastatin 20 mg PO PM acetaminophen 1,000 mg PO Q8H PRN aspirin 81 mg PO QPM STOP taking 2 weeks before surgery If surgery is within 2 weeks, stop taking as soon as possible. [place]-3 1 cap PO QAM apple cider vinegar 600 mg PO BID DO NOT take the morning of surgery ascorbic acid (vitamin C) 1 g PO QAM diphenhydramine HCl 25 mg PO QAM lisinopril 10 mg PO QAM Take morning of surgery With a small sip of water, OTHERWISE NOTHING TO EAT OR DRINK AFTER MIDNIGHT: pantoprazole 40 mg PO QAM acetaminophen 1,000 mg PO Q8H PRN (if needed, may be taken up to four hours before surgery) Take evening before surgery simvastatin 20 mg PO PM acetaminophen 1,000 mg PO Q8H PRN (if needed) aspirin 81 mg PO QPM Other Notes If you have any questions please call us at [phone] or [phone] or [phone] or [phone]
--- NOTE | 2020-01-06 11:27 | Anesthesiology Consultation ---
Date of Service January 06, 2020 Assessment & Plan (1) Encounter for pre-operative examination: COVID Status: As of 01/05 assessment, patient denies travel to endemic area, known exposure/sick contacts, or symptoms of COVID19. Patient instructed that they and their household members must follow strict social distancing guidelines, wear a mask in public and avoid travel for 14 days prior to surgery. Preoperative COVID19 testing to be completed prior to surgery per surgeon's arra mariangel (02[place]01 [place] [facility] [place] Patient made aware to self-isolate as much as possible between COVID testing and surgery. S/P R FINN 02/23/19 -- SAB x 1 attempt @ L3-L4, pt dave well. Chart Review Chart Review: Acceptable Risk for Surgery and Patient seen in Pre Admission Testing Teaching & Discussion Instructed NPO after midnight before surgery, except medications with 15 cc of water. Medication instructions provided according to the PAT guidelines. History Surgery Operation Date: 02/07/20 12:45 Proposed Procedures p Left Anterior Total Hip Arthroplasty - Caio Marmolejo DO Height/Weight Height: 5 ft 1 in Weight: 78.2 kg Allergies Allergy/AdvReac Type Severity Reaction Status Date / Time mold Allergy Mild DUST -- Verified 12/31/19 10:20 runny nose Medications Home Medications Medication Instructions Recorded Confirmed Last Taken [place]-3 1 cap PO QAM 01/20/19 12/31/19 02/15/19 apple cider vinegar 600 mg PO BID 01/20/19 12/31/19 02/15/19 ascorbic acid (vitamin C) [Vitamin 1 g PO QAM 01/20/19 12/31/19 02/22/19 05:45 C] diphenhydramine HCl 25 mg PO QAM 01/20/19 12/31/19 02/23/19 04:30 lisinopril 10 mg PO QAM 01/20/19 12/31/19 02/23/19 04:30 pantoprazole 40 mg PO QAM 01/20/19 12/31/19 02/23/19 04:30 simvastatin 20 mg PO PM 01/20/19 12/31/19 02/22/19 22:45 acetaminophen 1,000 mg PO Q8H PRN #90 tab 02/23/19 12/31/19 Unknown aspirin 81 mg PO QPM 12/31/19 12/31/19 Unknown Past Medical History Medical History Acid reflux controlled Arthritis Borderline high cholesterol High blood pressure Obesity Renal insufficiency Exercise / Class Metabolic Activity II 4-5 Yardwork/Stairs/Walk up hill (Using cane for some ambulation for balance due to hip instability. Denies CP or SOB with 1 FOS but limited by hip pain.) Past Family History Family History (Updated 12/31/19 @ 10:27 by Arminda Alarcon RN) Sister Family history of diabetes mellitus Mother Family history of diabetes mellitus Aunt Family history of diabetes mellitus Aunt Family history of diabetes mellitus Past Surgical History Surgical History History of cholecystectomy History of colonoscopy History of foot surgery L BIG TOE History of total hip arthroplasty RIGHT 2019 Past Anesthesia History No Hx of Anesthesia Complications History of PONV No Hx of PONV and No Hx of Motion Sickness Social History Smoking Status: Never smoker Do You Dip or Chew Tobacco: No Hx Alcohol Use: No Alcohol type: wine alcohol intake frequency: holidays/special occasions only Hx Substance Use: No substance use type: does not use Review of Systems Pt denies any recent chest pain, shortness of breath, palpitations, cough, fever, URI, or uncontrolled acid reflux. Physical Exam Vital Signs BP: 131/81 P: 72bpm SPO2: 96% RA T: 97.8 F R: 16 ENMT Mouth: no dental restorations, no chipped teeth and no loose teeth Thyromental Distance: > or= 3.5 Finger Breadths Mallampati Class: II Neck normal visual inspection; neck extension not limited Respiratory normal respiratory effort Auscultation: lungs clear to auscultation bilaterally Cardiovascular Rate/Rhythm: regular rate and regular rhythm Heart Sounds: no murmur Extremities: no edema Testing Laboratory Results 01/06/20 11:44 01/06/20 11:44 PT 10.7 Seconds (9.0-12.0) 01/06/20 11:44 INR 1.0 (0.9-1.1) 01/06/20 11:44 APTT 26.6 Seconds (21.0-31.0) 01/06/20 11:44 Hemoglobin A1c 5.9 % (4.5-5.6) H 01/06/20 11:44 Urine Color Yellow 01/06/20 11:44 Urine Appearance Clear (Clear) 01/06/20 11:44 Urine pH 5.0 (4.5-7.5) 01/06/20 11:44 Ur Specific [place] 1.029 (1.000-1.030) 01/06/20 11:44 Urine Protein Negative (Negative) 01/06/20 11:44 Urine Glucose (UA) Negative (Negative) 01/06/20 11:44 Urine Ketones Negative (Negative) 01/06/20 11:44 Urine Nitrite Negative (Negative) 01/06/20 11:44 Ur Leukocyte Esterase 1+ (Negative) H 01/06/20 11:44 Urine WBC (Auto) 10-30 /hpf (0-5) H 01/06/20 11:44 Urine RBC (Auto) 0-4 /hpf (0-4) 01/06/20 11:44 U Hyaline Cast (Auto) 1-5 /lpf (0-5) 01/06/20 11:44 U Epithel Cells (Auto) >30 /lpf (0-5) H 01/06/20 11:44 Urine Bacteria (Auto) Negative (Negative) 01/06/20 11:44 Blood Type A Positive 01/06/20 11:44 Antibody Screen NEGATIVE 01/06/20 11:44 Electrocardiogram Date: 01/06/20 Findings: + NSR @ (67bpm) and + no change from (2019) Chest X-Ray Date: 01/06/20 Findings: + NAD *There is a thoracolumbar scoliosis.
[2020-01-06 12:16] LABS: Basophils # (auto) 0.01 K/uL (0-0.2); Basophils % (auto) 0.2 %; Eosinophils # (auto) 0.04 K/uL (0-0.5); Eosinophils % (auto) 0.8 %; Hematocrit (blood only) 45.5 % (37-47); Hemoglobin 14.7 g/dL (12.0-16.0); Immature Granulocytes # (auto) 0.01 K/uL (0.00-0.02); Immature Granulocytes % (auto) 0.2 %; Lymphocytes % (auto) 40.3 %; Mean Corpuscular Hemoglobin 29.2 pg (25-34); Mean Corpuscular Hgb Conc 32.3 g/dL (32-36); Mean Corpuscular Volume 90.3 fL (80-100); Mean Platelet Volume 9.3 fL (7.4-10.4); Monocytes # (auto) 0.36 K/uL (0.11-0.59); Monocytes % (auto) 6.9 %; Neutrophils # (auto) 2.69 K/uL (1.4-6.5); Neutrophils % (auto) 51.6 %; Platelet Count 246 K/uL (130-400); RDW Coefficient of Variation 13.8 % (11.5-14.5); RDW Standard Deviation 45.7 fL (36.4-46.3); Red Blood Count 5.04 M/uL (4.2-5.4); White Blood Count 5.21 K/uL (4.8-10.8)
[2020-01-06 12:17] LABS: Appearance Urine Clear (Clear); Bacteria Urine Automated Negative (Negative); Bilirubin Urine Negative (Negative); Blood Urine Negative (Negative); Color Urine Yellow; Epithelial Cell Urine Auto >30 /lpf (0-5); Glucose Urine UA Negative (Negative); Ketones Urine Negative (Negative); Leukocyte Esterase Urine 1+ (Negative); Nitrite Urine Negative (Negative); Protein Urine Negative (Negative); RBC Urine Automated 0-4 /hpf (0-4); Specific Gravity Urine 1.029 (1.000-1.030); Urobilinogen Urine Negative (Negative)
[2020-01-06 12:28] LABS: Partial Thromboplastin Time 26.6 Seconds (21.0-31.0); Prothrombin Time 10.7 Seconds (9.0-12.0)
[2020-01-06 12:44] LABS: Estimated Average Glucose 123 mg/dl; Hemoglobin A1C 5.9 % (4.5-5.6)
--- NOTE | 2020-01-06 12:49 | XRay Report ---
XR chest Pre-admission PA/Lat CLINICAL HISTORY: Preoperative chest COMPARISON STUDY: 01/27/2019 FINDINGS: The cardiac and mediastinal contours are normal. There is no evidence of focal pulmonary co nsolidation. There is no evidence of failure. No pleural effusions are visualized.[There is a retroca rdiac opacity consistent with a hiatal hernia. There is a thoracolumbar scoliosis. IMPRESSION: No active disease in the chest. ACT 112: Negative or not required by law. Electronically signed by: Eldon Chase M.D. 01/06/2020 12:48 PM
[2020-01-06 13:32] LABS: Albumin Level 4.2 gm/dl (3.4-5.0); BUN Creatinine Ratio 15.7 (10-20); Calcium 9.9 mg/dl (8.5-10.1); Creatinine Clr Calc Pharmacy 30.9 ml/min; Est GFR (African American) 39.4
--- NOTE | 2020-01-06 17:57 | Electrocardiogram Report ---
Test Reason : Blood Pressure : / mmHG Vent. Rate : 067 BPM Atrial Rate : 067 BPM P-R Int : 116 ms QRS Dur : 078 ms QT Int : 420 ms P-R-T Axes : -08 086 071 degrees QTc Int : 443 ms Normal sinus rhythm Normal ECG When compared with ECG of 27-JAN-2019 11:22, No significant change was found Confirmed by Chalo Omalley ([id number]) on 01/06/2020 5:56:59 PM Referred By: Caio Marmolejo Confirmed By:Fletcher Omalley
--- NOTE | 2020-02-05 10:07 | History & Physical Report ---
Date of Service February 07, 2020 Assessment & Plan (1) Degenerative joint disease of left hip: I have indicated the patient for left anterior total hip replacement. The risks, benefits and complications of surgery were explained to the patient which include but not limited to infection, acute blood loss, DVT/PE, injury to nerves, vessels, bone, soft tissue, arthrofibrosis, chronic pain, failure of the prosthesis, hip dislocation, leg length discrepancy, need for additional surgery, cardiac and pulmonary events and . The patient wished to proceed with surgery and informed consent was obtained at this time. We will plan for 81mg ASA BID post-operatively for DVT prophylaxis. Upon discharge the patient will be discharged home with home health services. Appropriate clearances by PCP were obtained. The patient is asymptomatic for UTI. History of Present Illness Chief Complaint: Left hip pain/DJD Primary Care Provider: Jake Park MD The patient is a 74 year old female who presents with complaints of severe left hip pain and DJD. The patient has failed outpatient conservative treatments to this point which included NSAIDs, home exercise/walking program, patient declined further conservative treatments including corticosteroid injection due to ineffectiveness in the past. The patient's pain and limited function have progressed to the point where they severely hinder their activities of daily living and they no longer tolerate exercise programs. They are requesting to proceed with total hip replacement surgery. Allergies Allergy/AdvReac Type Severity Reaction Status Date / Time mold Allergy Mild DUST -- Verified 02/07/20 07:32 runny nose Home Medications Home Medications Medication Instructions Recorded Confirmed Type [place]-3 1 cap PO QAM 01/20/19 02/07/20 History apple cider vinegar 600 mg PO BID 01/20/19 02/07/20 History ascorbic acid (vitamin C) [Vitamin 1 g PO QAM 01/20/19 02/07/20 History C] lisinopril 10 mg PO QAM 01/20/19 02/07/20 History pantoprazole 40 mg PO QAM 01/20/19 02/07/20 History simvastatin 20 mg PO PM 01/20/19 02/07/20 History acetaminophen 1,000 mg PO Q8H PRN #90 tab 02/23/19 02/07/20 Rx aspirin 81 mg PO QPM 12/31/19 02/07/20 History Past Med/Surg History Medical History Acid reflux controlled Arthritis Borderline high cholesterol High blood pressure Obesity Renal insufficiency Surgical History History of cholecystectomy History of colonoscopy History of foot surgery L BIG TOE History of total hip arthroplasty RIGHT 2019 Family History Sister Family history of diabetes mellitus Mother Family history of diabetes mellitus Aunt Family history of diabetes mellitus Aunt Family history of diabetes mellitus Social History Smoking Status: Never smoker Second Hand Exposure: Yes (FATHER/UNCLE SMOKED); Do You Dip or Chew Tobacco: No; Hx Alcohol Use: No Hx Substance Use: No Preferred Language: Nepali Communication Ability: Effective Horticultural Agent Required: No Beliefs That Will Affect Care: None Current Living Situation: Spouse Other Information That Helps Us Care for You: No Feels Safe at Home: Yes Safety Concerns: Feels Safe At This Time Assistive Devices: Cane and Glasses Assistive Devices Comment: CANE PRN Review of Systems Review of Systems: All systems reviewed & are unremarkable except as noted in HPI & below Constitutional: as per Subjective / HPI Physical Exam Physical Exam: LLE NVSI +EHL/FHL/TA/GS SILT grossly, +2 DP pulse, compartments soft NT, limited painful ROM of the hip, antalgic gait. Constitutional: WD/WN, vitals as above Eyes: PERRL, conjunctivae normal, anicteric sclerae ENMT: external ear and nose normal, oropharynx normal Neck: trachea midline, no thyromegaly Respiratory: normal respiratory effort, lungs clear to auscultation Cardiovascular: RRR, no murmur, no edema Gastrointestinal (Abdomen): normal bowel sounds, soft, nontender, no hepa tosplenomegaly Musculoskeletal: no cyanosis or clubbing, extremities motor strength 5/5 Skin: no rashes, warm and dry Neurologic: patellar DTR's 2+ bilat, sensation intact Psychiatric: A+Ox3, euthymic affect Lymphatic: no cervical or axillary lymphadenopathy Results & Data Results & Data ([facility]) Diagnostic Findings Multiple views of the hip demonstrates severe DJD with complete loss of the joint space. +osteophytes, +sclerosis, +subchondral cysts. Pre Admission Testing Addendum Laboratory Results 01/06/20 11:44 01/06/20 11:44 PT 10.7 Seconds (9.0-12.0) 01/06/20 11:44 INR 1.0 (0.9-1.1) 01/06/20 11:44 APTT 26.6 Seconds (21.0-31.0) 01/06/20 11:44 Hemoglobin A1c 5.9 % (4.5-5.6) H 01/06/20 11:44 Urine Color Yellow 01/06/20 11:44 Urine Appearance Clear (Clear) 01/06/20 11:44 Urine pH 5.0 (4.5-7.5) 01/06/20 11:44 Ur Specific [place] 1.029 (1.000-1.030) 01/06/20 11:44 Urine Protein Negative (Negative) 01/06/20 11:44 Urine Glucose (UA) Negative (Negative) 01/06/20 11:44 Urine Ketones Negative (Negative) 01/06/20 11:44 Urine Nitrite Negative (Negative) 01/06/20 11:44 Ur Leukocyte Esterase 1+ (Negative) H 01/06/20 11:44 Urine WBC (Auto) 10-30 /hpf (0-5) H 01/06/20 11:44 Urine RBC (Auto) 0-4 /hpf (0-4) 01/06/20 11:44 U Hyaline Cast (Auto) 1-5 /lpf (0-5) 01/06/20 11:44 U Epithel Cells (Auto) >30 /lpf (0-5) H 01/06/20 11:44 Urine Bacteria (Auto) Negative (Negative) 01/06/20 11:44 Blood Type A Positive 01/06/20 11:44 Antibody Screen NEGATIVE 01/06/20 11:44 01/06/20 11:44 Urine Culture - Final Urine,Clean Catch Gamma strep not enterococcus
[~2020-02-07 06:58] MED LIST changes: +BUPIVACAINE 0.5 % 5 MG/1 ML PF 10ML VIAL ONE; -CEFAZOLIN 1000MG 1,000 MG/7.5 ML SYR IV SCH; +ROPIVACAINE 0.5% HCL/PF 150 MG, BUPIVACAINE 0.5% MPF 30 ML, EPINEPHrine 0.15 MG, Ketoro... INFIL SCH; -ROPIVACAINE 0.5% HCL/PF 150 MG, BUPIVACAINE 0.5% MPF 30 ML, EPINEPHrine 30MG/30ML (OR U... INSTIL SCH; +TRANEXAMIC ACID 1,000 MG **IV Intra-op IV SCH; +ceFAZolin 2000MG 2,000 MG/15 ML SYR IV SCH
[2020-02-07] MEDS ORDERED: MEPERIDINE HCL 25 MG/ML CARP/VIAL IV PRN (07:17)
[2020-02-07] MEDS ORDERED: PHENYLEPHRINE 100MCG/ML 5ML SYR IV PRN (07:17)
[2020-02-07] MEDS ORDERED: LABETALOL HCL IV 5 MG/ML 20ML IV PRN (07:17)
[2020-02-07] MEDS ORDERED: ONDANSETRON INJ 2 MG/ML 2 ML VIAL IV PRN ×2 (07:17→13:46)
[2020-02-07] MEDS ORDERED: ATROPINE SULFATE 0.1 MG/ML 10ML SYR IV PRN (07:17)
[2020-02-07] MEDS ORDERED: ePHEDrine sulfate 50 MG/ML AMP IV PRN (07:17)
[2020-02-07] MEDS ORDERED: fentaNYL citrate 100 MCG/2 ML VIAL IV PRN (07:17)
[2020-02-07] MEDS ORDERED: fentaNYL citrate 100 MCG/2 ML VIAL ONE (07:25)
[2020-02-07] MEDS ORDERED: MIDAZOLAM HCL 1 MG/ML 2ML VIAL ONE ×2 (07:25→11:00)
[2020-02-07] MEDS ORDERED: LIDOCAINE HCL 2% 2 ML VIAL/AMP(20MG/ML) INFIL ONE (07:25)
[2020-02-07] MEDS ORDERED: PROPOFOL IV EMULSION 10 MG/ML 20 ML VIAL IV ONE ×2 (07:25→11:17)
[2020-02-07] MEDS ORDERED: BACITRACIN INJ 50,000 UNIT VIAL ONE (09:10)
--- NOTE | 2020-02-07 09:28 | History & Physical Bridge Note ---
Date of Service February 07, 2020 History & Physical Bridge Note I have examined the patient, reviewed the History & Physical and in the interval since the performance of the History & Physical I have noted the following changes of clinical significance: no changes noted
[2020-02-07] MEDS ORDERED: KETAMINE 50 MG/5 ML SYRINGE ONE (11:30)
--- NOTE | 2020-02-07 11:58 | Post Operative Brief Note ---
Immediate Post Op Note v1 Date of Surgery February 07, 2020 Pre & Post Diagnosis Operation Date: 02/07/20 09:30 Pre-Op Diagnosis: Osteoarthritis, Left Hip Post-Op Diagnosis: Osteoarthritis, Left Hip I identified the patient and participated in the time-out.: Yes Procedure Operation Date: 02/07/20 09:30 Actual Procedures p Left Anterior Total Hip Arthroplasty(Left) - Caio Marmolejo DO Surgeon Caio Marmolejo DO [place] Laborer Chino García Estimated Blood Loss 185 Findings Consistent with Post-Op Diagnosis Fluids 1600 cc LR Specimens femoral head Anesthesia Type Spinal MAC Complications none Disposition Disposition: Recovery Room Overlapping Procedure I was present for: the critical portions of procedure. I was immediately available: during the entire case. Back up surgeon: was not required during procedure.
--- NOTE | 2020-02-07 12:01 | Operative Report ---
Post Operative Report Pre & Post Diagnosis Operation Date: 02/07/20 09:30 Pre-Op Diagnosis: Osteoarthritis, Left Hip Post-Op Diagnosis: Osteoarthritis, Left Hip I identified the patient and participated in the time-out.: Yes Procedure Operation Date: 02/07/20 09:30 Actual Procedures p Left Anterior Total Hip Arthroplasty(Left) - Caio Marmolejo DO Surgeon Caio Marmolejo DO Press Washer Chino García Estimated Blood Loss 185 Findings Consistent with Post-Op Diagnosis Fluids 1600 cc LR Specimens Femoral head Anesthesia Type Spinal MAC Complications none Disposition Disposition: Recovery Room Indications The patient is a 74-year-old female who presents with severe progressive left hip DJD who has failed outpatient conservative treatments. I indicated the patient for a total hip replacement and the risks and benefits were explained in detail which included but not limited to infection, bleeding, blood clot, damage to surrounding bone, nerves, vessels, soft tissue, hip dislocation, failure of the prosthesis, leg length discrepancy, need for additional surgery and . The patient agreed to proceed with replacement of the hip and informed consent was obtained. Appropriate clearances were obtained. Description of Procedure COMPONENTS USED: [employer] hip system: Acetabulum size 52, femur size 3 high offset, femoral head 36-3, liner 52x36, acetabular screw 25 mm x 1. DESCRIPTION OF PROCEDURE: Following satisfactory spinal anesthesia, the patient was placed supine on the OR table. The right leg was placed in the well leg shah and the left leg in the traction device. The left leg was prepared with ChloraPrep and draped sterilely. A surgical timeout was performed, patient iden tified and site vladimir verified. Appropriate antibiotics were given. A standard anterior approach in the interval between the sartorius and tensor muscles was performed. Dissection was carried down through subcutaneous tissues. Electrocautery was utilized for hemostasis. Circumflex femoral vessels were identified, tied and ligated. The anterior capsular fat pad was removed and the capsulotomy was performed revealing the arthritic femoral neck and head. A femoral neck cut was made with reciprocating saw and the bone fragments removed. The acetabular self-retraining retractor was placed. Acetabular reaming was completed under fluoroscopic guidance, a 52 shell was impacted into an anatomic position and secured with a dome screw. Local anesthetic was placed and following irrigation, the polyethylene liner was placed. The femur was placed into position of external rotation, extension and adduction. Femoral canal was prepared up to the size 3 high offset. Trial reduction with a 36-3 neck length head showed good soft tissue tension, leg lengths restored, and good fit and fill of the proximal canal using fluoroscopic landmarks. The hip was dislocated. The trial component was removed. The final implant was placed. The hip was irrigated with sterile saline solution and reduced. A Betadine soak was performed. After 3 minutes, the hip was once more irrigated with copious sterile saline solution with bacitracin. Aida-incisional soft tissue was injected utilizing [place] [employer]ix which includes a combination of Ropivicaine 0.5% 150mg, Bupivicaine 0.5%/Epinephrine 1:200,000 30ml, Toradol 30mg, Dexamethasone 4mg, Ketamine 10mg, Clonidine 100mcg and NSS 30ml solution. The capsule was then closed with 1-0 Vicryl interrupted figure of eight sutures. The fascia was closed with a running suture of #1 Vicryl, the subcutaneous tissues with 2-0 Vicryl and the skin with a running subcuticular stitch of 3-0 V-Loc. Dermabond prineo and a dry dressing were applied. The patient tolerated the procedure well and was transported to PACU in stable condition. Due to the complex nature of the procedure, the entire surgery was performed with the operational assistance of Chino García PA-C. The assistant produce manager, under direct supervision, was involved in the actual performance of all aspects of the surgical procedure including patient positioning, hemostasis, tissue retr action, instrument management and wound closure. I attest to the content of the Intraoperative Record and any orders documented therein. Any exceptions are noted below.
--- NOTE | 2020-02-07 12:03 | Fluoroscopy Report ---
FL hip LT 1V CLINICAL HISTORY: LT ANTERIOR COMPARISON STUDY: Pelvis radiograph February 23, 2019. FLUOROSCOPY TIME: 55 seconds. FLUOROSCOPIC IMAGES: 2 FINDINGS: Fluoroscopy was provided during total left hip arthroplasty. Hardware is intact. There is a n acetabular screw. No fracture is identified by fluoroscopy. A right hip arthroplasty is also noted. IMPRESSION: Fluoroscopy provided during total left hip arthroplasty. ACT 112: Negative or not required by law. Electronically signed by: Trenton Alejandro M.D. 02/07/2020 12:01 PM
--- NOTE | 2020-02-07 12:55 | XRay Report ---
XR hip 1V LT w pelvis HISTORY: 74 years-old Female IN PACU - A/P PELVIS and LATERAL HIP left hip total joint arthroplasty COMPARISON: Pelvis and right hip radiographs 02/23/2019 TECHNIQUE: AP view of the pelvis with crosstable lateral view of the left hip FINDINGS: Left hip total joint arthroplasty demonstrates satisfactory alignment. No acute fracture or expected opaque foreign body. Expected postsurgical soft tissue swelling and deep tissue air with surgical danny inage catheter. Unchanged right hip total joint arthroplasty. IMPRESSION: Left hip total joint arthroplasty with expected postoperative changes. ACT 112: Negative or not required by law. The above report was generated using voice recognition software. It may contain grammatical, syntax o r spelling errors. Electronically signed by: Juan Ramon Burden M.D. 02/07/2020 12:54 PM
--- NOTE | 2020-02-07 13:08 | Orthopedic Progress Note ---
Date of Service February 07, 2020 Assessment & Plan (1) Degenerative joint disease of left hip: Status post left anterior total hip arthroplasty -Ancef x24 -DVT prophylaxis: SCDs, teds, 81 mg ASA twice daily -Weight-bear as tolerates left lower extremity -PT/OT -Postoperative x-ray demonstrates a well aligned well fixed prosthesis without fracture or dislocation -A.m. labs -DC planning Subjective Post Operative Progress Note Patient seen in PACU, comfortable, denies complaints, pain well controlled, no acute issues. Still feeling effects of spinal anesthesia. Review of Systems Review of Systems: All systems reviewed & are unremarkable except as noted in HPI & below Constitutional: as per Subjective / HPI Physical Exam Physical Exam: Left lower extremity physical exam limited secondary to spinal anesthesia, +2 dorsalis pedis pulse, compartment soft nontender, dressings clean dry and intact. Constitutional: WD/WN, vitals as above Results & Data ([facility]) Vital Signs (Past 12 Hours) Vital Signs Temp Pulse Pulse Resp BP BP Pulse Ox 02/07/20 13:00 36.4 C L 79 15 127/85 98 02/07/20 12:50 87 17 118/84 96 02/07/20 12:40 85 15 119/82 98 02/07/20 12:30 89 16 122/80 94 02/07/20 12:22 36.3 C L 87 21 134/86 100 02/07/20 08:19 71 18 116/71 95 02/07/20 07:52 37 C 84 18 132/83 97
--- NOTE | 2020-02-07 13:10 | Anesthesiology Progress Note ---
Date of Service February 07, 2020 Anesthesia Post Procedure Vital Signs Vital Signs: Temp Pulse Pulse Resp BP BP Pulse Ox 02/07/20 13:00 36.4 C L 79 15 127/85 98 02/07/20 12:50 87 17 118/84 96 02/07/20 12:40 85 15 119/82 98 02/07/20 12:30 89 16 122/80 94 02/07/20 12:22 36.3 C L 87 21 134/86 100 02/07/20 08:19 71 18 116/71 95 02/07/20 07:52 37 C 84 18 132/83 97 Transfer of Care Handoff Completed per policy Notes Mental Status: alert / awake / arousable Patient Amnestic to Procedure: Yes Nausea / Vomiting: adequately controlled Pain: adequately controlled Airway Patency, RR, SpO2: stable & adequate BP & HR: stable & adequate Hydration State: stable & adequate Neuraxial Anesthesia: was administered and sensory block is resolving Anesthetic Complications: no major complications apparent and Pt Satisfied with anesthetic care
[2020-02-07] MEDS ORDERED: NALOXONE HCL 0.4 MG/1 ML VIAL/CARP IV PRN (13:46)
[2020-02-07] MEDS ORDERED: MAGNESIUM HYDROXIDE SUSP 30 ML UDC PO PRN (13:46)
[2020-02-07] MEDS ORDERED: HYDROmorphone INJ 0.5 MG/0.5 ML SYR IV PRN (13:46)
[2020-02-07] MEDS ORDERED: METOCLOPRAMIDE HCL INJ 5 MG/ML 2 ML VIAL IV PRN (13:46)
[2020-02-07] MEDS ORDERED: bisacodyL 10 MG SUPP PR PRN (13:46)
[2020-02-07] MEDS ORDERED: traMADol HCL 50 MG TABLET PO PRN (13:46)
[2020-02-07] MEDS: SODIUM CHLORIDE 0.9% 1000ML 1,000 ML IV SCH (14:24)
[2020-02-07] MEDS: ACETAMINOPHEN 500 MG TAB PO SCH ×2 (14:24→21:00)
[2020-02-07] MEDS: ceFAZolin 2000MG 2,000 MG/15 ML SYR IV SCH (18:46)
[2020-02-07] MEDS ORDERED: SIMVASTATIN 20 MG TAB PO SCH (21:00)
[2020-02-07] MEDS ORDERED: SENNA 8.6 MG TAB PO SCH (21:00)
[2020-02-07] MEDS: DOCUSATE SODIUM 100 MG CAP PO SCH (21:02)
[2020-02-08] MEDS: ceFAZolin 2000MG 2,000 MG/15 ML SYR IV SCH (02:01)
[2020-02-08] MEDS: SODIUM CHLORIDE 0.9% 1000ML 1,000 ML IV SCH (03:25)
[2020-02-08] MEDS: ACETAMINOPHEN 500 MG TAB PO SCH ×2 (05:54→13:46)
[2020-02-08] MEDS: DOCUSATE SODIUM 100 MG CAP PO SCH (05:58)
[2020-02-08 06:29] LABS: Hematocrit (blood only) 31.8 % (37-47); Hemoglobin 10.3 g/dL (12.0-16.0); Immature Granulocytes # (auto) 0.03 K/uL (0.00-0.02); Immature Granulocytes % (auto) 0.2 %; Lymphocytes # (auto) 1.11 K/uL (1.2-3.4); Mean Corpuscular Hemoglobin 28.6 pg (25-34); Mean Corpuscular Hgb Conc 32.4 g/dL (32-36); Mean Corpuscular Volume 88.3 fL (80-100); Mean Platelet Volume 9.1 fL (7.4-10.4); Monocytes # (auto) 0.98 K/uL (0.11-0.59); Monocytes % (auto) 7.1 %; Neutrophils # (auto) 11.73 K/uL (1.4-6.5); Neutrophils % (auto) 84.7 %; Platelet Count 221 K/uL (130-400); RDW Coefficient of Variation 12.6 % (11.5-14.5); RDW Standard Deviation 40.8 fL (36.4-46.3); White Blood Count 13.85 K/uL (4.8-10.8)
--- NOTE | 2020-02-08 07:19 | Orthopedic Progress Note ---
Date of Service February 08, 2020 Assessment & Plan (1) Degenerative joint disease of left hip: Status post left anterior total hip replacement POD#1 -Ancef x24 -DVT prophylaxis: SCDs, teds, 81 mg ASA twice daily -Weight-bear as tolerates left lower extremity -PT/OT -Postoperative x-ray demonstrates a well aligned well fixed prosthesis without fracture or dislocation -A.m. labs - as above, hgb 10.3 -DC planning Admission and Anticipated Discharge Date Admission Date: February 07, 2020 Subjective Post Operative Progress Note Patient seen sitting up in bed, comfortable, denies complaints, pain well controlled, no acute issues. Denies F/C/N/V/SOB/CP. Review of Systems Review of Systems: All systems reviewed & are unremarkable except as noted in HPI & below Constitutional: as per Subjective / HPI Physical Exam Physical Exam: LLE NVSI +EHL/FHL/TA/GS SILT grossly, +2 DP pulse, compartments soft NT, dressing cdi. Results & Data ([facility]) Vital Signs (Past 12 Hours) Vital Signs Temp Pulse Pulse Resp BP Pulse Ox 02/08/20 05:49 66 106/69 02/08/20 03:51 36.3 C L 65 16 103/65 97 02/07/20 23:35 36.3 C L 66 16 103/63 98 Laboratory Results 02/08/20 02/08/20 Range/Units 06:10 06:10 WBC 13.85 H (4.8-10.8) K/uL RBC 3.60 L (4.2-5.4) M/uL Hgb 10.3 L (12.0-16.0) g/dL Hct 31.8 L (37-47) % MCV 88.3 (80-100) fL MCH 28.6 (25-34) pg MCHC 32.4 (32-36) g/dL RDW Std Deviation 40.8 (36.4-46.3) fL RDW Coeff of Scar 12.6 (11.5-14.5) % Plt Count 221 (130-400) K/uL MPV 9.1 (7.4-10.4) fL Immature Gran % (Auto) 0.2 % Neut % (Auto) 84.7 % Lymph % (Auto) 8.0 % [place] % (Auto) 7.1 % Eos % (Auto) 0.0 % Baso % (Auto) 0.0 % Neut # (Auto) 11.73 H (1.4-6.5) K/uL Lymph # (Auto) 1.11 L (1.2-3.4) K/uL [place] # (Auto) 0.98 H (0.11-0.59) K/uL Eos # (Auto) 0.00 (0-0.5) K/uL Baso # (Auto) 0.00 (0-0.2) K/uL Immature Gran # (Auto) 0.03 H (0.00-0.02) K/uL Sodium Pending Potassium Pending Chloride Pending Carbon Dioxide Pending Anion Gap Pending BUN Pending Creatinine Pending Est Cr Clr Drug Dosing Pending Est GFR ( Amer) Pending Est GFR (Non-Af Amer) Pending BUN/Creatinine Ratio Pending Glucose Pending Calcium Pending
[2020-02-08 07:30] LABS: BUN Creatinine Ratio 26.4 (10-20); Calcium 8.6 mg/dl (8.5-10.1); Creatinine Clr Calc Pharmacy 27.9 ml/min; Est GFR (African American) 35.1; Est GFR (Non-African American) 30.3; Potassium 4.5 mmol/L (3.5-5.1)
[2020-02-08] MEDS ORDERED: PANTOprazole 40 MG TAB PO SCH (09:00)
[2020-02-08] MEDS ORDERED: lisinopril 10 MG TAB PO SCH (09:00)
[2020-02-08] MEDS ORDERED: ASPIRIN 81 MG ECTAB PO SCH (09:00)
[2020-02-08] MEDS ORDERED: MULTIVITAMIN TAB PO SCH (09:00)
--- NOTE | 2020-02-08 20:31 | Discharge Summary ---
Date of Service February 08, 2020 Admission HPI Per Admitting Provider The patient is a 74 year old female who presents with complaints of severe left hip pain and DJD. The patient has failed outpatient conservative treatments to this point which included NSAIDs, home exercise/walking program, patient declined further conservative treatments including corticosteroid injection due to ineffectiveness in the past. The patient's pain and limited function have progressed to the point where they severely hinder their activities of daily living and they no longer tolerate exercise programs. They are requesting to proceed with total hip replacement surgery. Principal Diagnosis Left anterior total hip replacement -Left hip DJD Discharge Exam LLE NVSI +EHL/FHL/TA/GS SILT grossly, +2 DP pulse, compartments soft NT, dressing cdi. Constitutional WD/WN, vitals as above Discharge Data Allergies Allergy/AdvReac Type Severity Reaction Status Date / Time mold Allergy Mild DUST -- Verified 02/07/20 07:32 runny nose Consultations 02/08/20 08:00 Consult Case Management - Discharge Planning Routine Procedures Performed Operation Date: 02/07/20 09:30 Actual Procedures p Left Anterior Total Hip Arthroplasty(Left) - Caio Marmolejo DO Ordered Studies 02/07/20 09:30 FL fluoroscopy <1hr Routine FL hip LT 1V Routine Hospital Course (1) Degenerative joint disease of left hip: The patient is a 74 -year-old female who presents with long standing history of severe left hip DJD and failed outpatient conservative treatments. The patient's symptoms have progressed to the point where it has been difficult to perform even normal activities of daily living. I indicated the patient for a left anterior total hip arthroplasty, the risks, benefits and complications of the procedure include but not limited to infection, bleeding, damage to bone, nerves, vessels, surrounding soft tissue, may develop blood clots, loss of function, leg length discrepancy, dislocation, failure of the components, loosening of the components, the need for additional surgery and . The patient wished to proceed with surgery at this time and informed consent was obtained. Hospital Course: On 02/07/20 the patient was taken to the operating room, adequate anesthesia administered and underwent a left anterior total hip arthroplasty. The patient tolerated the procedure well and was taken to the PACU in stable condition. Post-operatively the patient was started on a DVT ppx medication and given appropriate IV antibiotics. Consults were placed to physical therapy, occupational therapy and case management. On POD#1, the patient did well overnight and their pain was well controlled. Labs were drawn and the Hgb was 10.3. The patient progressed well with PT. Dressings were changed at this time and the incision was clean, dry and intact. The patients hospital stay was relatively uneventful and they were deemed stable by the orthopedic team and consultants to be discharged home with on 02/08/20. Discharge Instructions: Upon discharge the patient may weight bear as tolerates through their operative extremity. They were instructed to keep the incision clean and dry at all times. The patient may shower but should not submerge the incision, avoid bathing, pools and hot tubs. The patient was given a script for pain medication and should take as instructed. The patient was given a script for DVT ppx 81mg ASA BID and should take as directed. The patient was instructed to not drive or travel for long distances until cleared to do so. If the patient develops any symptoms of fevers, chills, nausea, vomiting, increased redness, swelling, pain or drainage from the surgical site, they should notify the office and/or proceed to the nearest emergency room. The patient should follow up in 10-14 days after surgery for their routine post-operative follow-up appointment and should call the office, to confirm the date and time. Status post left POD#1 -Ancef x24 -DVT prophylaxis: SCDs, teds, 81 mg ASA twice daily -Weight-bear as tolerates left lower extremity -PT/OT -Postoperative x-ray demonstrates a well aligned well fixed prosthesis without fracture or dislocation -A.m. labs - as above, hgb 10.3 -DC planning Total Time Total Time Spent Total Time Spent (In Minutes): 30 Discharge Plan Discharge Items Patient Disposition: Home - Home Health Services Reason For Visit: Osteoarthritis, Left Hip Discharge Diagnosis: Left anterior total hip replacement -Left hip DJD Condition on Discharge: Good Activity: Per Instructions section Lifting: Wait until after follow-up appointment Bathing: Keep incision dry Bathing Comment: No bathing, pools or hot tubs. Sexual Activity: Wait until after follow-up appointment Exercise/Sports: Wait until after follow-up appointment Driving/Machine Use: No driving. Weightbearing: Full weightbearing Non-emergency contact: Primary Care Provider and Surgeon Call non-emergency contact if: you have any medication questions, your symptoms worsen, your pain is not controlled, your pain is worsening, your pain is unusual for you, your pain is concerning for you, you have a fever, your temperature is above 101, your wound has increased redness, your wound has increased drainage and your wound pain has increased Follow-up/Referrals: Jake Park MD [Primary Care Provider] - Diet: Regular Addtl Attending Provider Instructions: ACTIVITY RECOMMENDATIONS: SELF CARE INSTRUCTIONS AFTER TOTAL HIP REPLACEMENT : Direct Anterior Approach Until the incision and soft tissues around your hip have healed, there is a possibility that the hip prosthesis could dislocate. A. Hip flexion ( Up & Down out of chair or steps ) may be difficult. This is normal. B. Numbness in front of the thigh is also normal for a few weeks. C. Use hand rails when walking on stairs. D. Wear low heeled shoes with non-slip soles. E. Be sure that your floors are free of things that could trip you - throw rugs, electrical cords, small objects. Avoid wet and waxed floors, especially with crutches and canes. F. Try to walk several times a day with rest periods between. G. Continue with all the exercises taught to you in the hospital. Again, make walking a part of your daily routine. SPECIAL CARE INSTRUCTIONS: VERY IMPORTANT TO READ AND REVIEW A. You may still be at risk for phlebitis and blood clots. 1. Wear surgical stockings (MILA hose) for 2 weeks after surgery to improve circulation and reduce swelling. 2. Take Aspirin 81mg twice daily for 4 weeks or as directed by your doctor. This is your blood thinner. 3. High risk patients may be prescribed a stronger blood thinner if necessary. 4. If you are on Coumadin normally, your family doctor/allocation analyst should monitor your blood work. Expect a phone call the day of or the day after bloodwork is drawn to adjust your dosage. B. You must take antibiotics before having dental work, bladder, bowel and other surgery. Your doctor will provide you with a permanent card to carry describing precautions. C. Call [facility] if you have a fever, redness or swelling around the incision, cloudy drainage from incision, or sudden increase in pain in your hip, not relieved by your regular pain medication. D. Please call the office at if you have any concerns or questions about your operation or recovery. * YOU MAY SHOWER, NO TUB BATHS UNTIL CLEARED BY YOUR DOCTOR. - Keep an extra close eye on the top portion of your incision. Be sure to keep clean & dry. * WEAR MILA HOSE 20 HOURS PER DAY FOR 2 WEEKS. * YOU MAY PROGRESS FROM A WALKER, TO A CANE, TO INDEPENDENT AT YOUR OWN PACE. * MOST PATIENTS WILL HAVE HOME NURSING FOR THERAPY. IF YOU DECIDE TO DO OUTPATIENT PHYSICAL THERAPY, PLEASE SCHEDULE THIS 3 TIMES PER WEEK. * DERMABOND Prineo- This is a mesh tape dressing that is covered with glue. It should remain in place until the incision is properly healed, usually 10-14 days. This dressing is designed to naturally slough off. You may trim the excess mesh tape as it peels off. Incision may be briefly wet in a shower. Dry immediately by blotting with a clean, dry towel. Do not bath or swim until instructed by your doctor. Do not scratch, rub, or pick at the dressing. Do not apply any topical ointments or lotions until dressing is completely removed and/or instructed by your doctor. There may be a small piece of suture material at one end of your incision. Do not pull or trim this. If it is bothersome or catching on clothing, you may cover it with a band-aid. FOLLOW UP VISIT: If appointment is not already scheduled: Please call [facility] to make a follow-up appointment for 2 weeks after your surgery at . Pending Studies at Discharge: No Stand-Alone Forms: [facility] [place] [employer], Opioid Pain Management, Smoking Cessation Medications and DC Order Prescriptions: New aspirin 81 mg Tablet,Delayed Release (Dr/Ec) 81 mg PO BID Qty: 56 RF: 0 tramadol 50 mg Tablet 50 mg PO Q6H MDD 4 PRN (Reason: pain) Qty: 30 RF: 0 acetaminophen 500 mg Tablet 1,000 mg PO Q8 PRN (Reason: pain/fevers) Qty: 90 RF: 0 sennosides [Senokot] 8.6 mg Tablet 17.2 mg PO HS PRN (Reason: constipation) Qty: 28 RF: 0 Continued ascorbic acid (vitamin C) [Vitamin C] 1,000 mg Tablet 1 g PO QAM RF: 0 apple cider vinegar 600 mg Capsule 600 mg PO BID RF: 0 pantoprazole 40 mg Tablet,Delayed Release (Dr/Ec) 40 mg PO QAM RF: 0 simvastatin 20 mg Tablet 20 mg PO PM RF: 0 lisinopril 10 mg Tablet 10 mg PO QAM RF: 0 [place]-3 350 mg-235 mg- 90 mg-597 mg Capsule,Delayed Release(Dr/Ec) 1 cap PO QAM RF: 0 Discontinued acetaminophen 500 mg tablet 1,000 mg PO Q8H PRN (Reason: fever or pain) Qty: 90 RF: 0 aspirin 81 mg tablet,delayed release (DR/EC) 81 mg PO QPM RF: 0 Discharge Orders: Discharge Order (Routine); Ordered 02/08/20 Ordered By: Caio Marmolejo Admission Data Admit Date/Time: 02/07/20 12:27 Attending Provider: Caio Marmolejo Admit Provider: Caio Marmolejo Primary Care Provider: Jake Park Other Providers: [facility] Other Interventions: Discharge Summary Assessment (RN) Last Done: 02/08/20 12:29
== END 2020-02-08 14:58 | disposition home health service (06) ==
LOC: 3E 06:58 → ASU 06:58
DX: E78.00 Pure hypercholesterolemia, unspecified; Z79.899 Other long term (current) drug therapy; M16.12 Unilateral primary osteoarthritis, left hip; K21.9 Gastro-esophageal reflux disease without esophagitis; E66.9 Obesity, unspecified; Z68.32 Body mass index [BMI] 32.0-32.9, adult